=== PATIENT | male | born 1965 | race Caucasian/White ===

== ENCOUNTER 2024-03-29 07:59 | Day surgery (SDC) | payer OTHER ==
[2024-03-23 09:55] VITALS: BP 109/75
--- NOTE | 2024-03-26 09:53 | NUR ---
PT CAME TO HOSPITAL LOBBY TODAY TO ASK ABOUT HIS EKG RESULTS. REPORTS HE RECIEVED AN EMAIL FROM HIS PATIENT PORTAL THAT REPORTED AN ABNORMAL EKG RESULT. CALLED AND SPOKE WITH SHILO FROM ANESTHESIA. SHE STATES THAT PT WOULD HAVE GOTTEN A PHONE CALL CANCELING THE CASE IF ANESTHESIA WAS CONCERNED ABOUT THE FINDINGS. LET PT KNOW THIS AND HE STATES HE WILL COME FOR HIS CASE. ALSO OFFERED FOR HIM TO BE SEEN IN THE ED IF HE IS HAVING ANY SORT OF SYMPTOMS AT THIS TIME. PT REPORTS HE IS NOT, AND WAS OKAY TO GO HOME.
[~2024-03-29] VITALS: Ht 188 cm; Wt 97.7 kg
[~2024-03-29 07:59] MED LIST: CEFAZOLIN SODIUM 2 GM/20 ML SYR IV SCH; HEParin SOD (PORCINE) 5,000 UNIT/0.5 ML SYR SUB-Q SCH; IBLOOD GLUCOSE TEST STRIP 1 EA TEST VI PRN; LACTATED RINGER'S 1,000 ML IV SCH; LIDOCAINE HCL 1% 5 ML SDV INJ ONE; PROTONIX20 MG PO; SODIUM CHLORIDE 0.9% 60 ML IV ONE; TALTZ AUTO80 MG/1 ML; iopamidoL 30 ML VIAL ONE
[2024-03-29 08:20] VITALS: BP 117/71
[2024-03-29] MEDS ORDERED: DEXAMETHASONE SOD PHOS 4 MG/ML VIAL ONE (08:41)
[2024-03-29] MEDS ORDERED: propofoL 200 MG/20 ML VIAL ONE (08:41)
[2024-03-29] MEDS ORDERED: LIDOCAINE HCL 2% 5 ML SDV ONE (08:41)
[2024-03-29] MEDS ORDERED: ondansetron HCL 4 MG/2 ML VIAL ONE (08:41)
[2024-03-29] MEDS ORDERED: ROCURONIUM BROMIDE 50 MG/5 ML SYR ONE ×2 (08:41→10:55)
[2024-03-29] MEDS ORDERED: fentaNYL citrate 250 MCG/5 ML VIAL ONE (08:42)
[2024-03-29] MEDS ORDERED: ACETAMINOPHEN 1,000 MG/100 ML VIAL ONE (09:57)
[2024-03-29] MEDS ORDERED: KETOROLAC TROMETHAMINE 30 MG/ML VIAL ONE (09:58)
[2024-03-29] MEDS ORDERED: ePHEDrine sulfate 50 MG/ML AMP ONE (10:44)
[2024-03-29] MEDS ORDERED: SUGAMMADEX SODIUM 200 MG/2 ML ML ONE (11:13)
[2024-03-29] MEDS ORDERED: NALOXONE HCL 0.4 MG SYR IV PRN ×2 (11:15→12:00)
[2024-03-29] MEDS ORDERED: IBLOOD GLUCOSE TEST STRIP 1 EA TEST VI PRN (11:15)
[2024-03-29] MEDS ORDERED: droPERidol 5 MG/2 ML VIAL IV PRN (11:15)
[2024-03-29] MEDS ORDERED: ondansetron HCL 4 MG/2 ML VIAL IV PRN (11:15)
[2024-03-29] MEDS ORDERED: HYDROmorphone HCL 1 MG/ML SYR IV PRN (11:15)
[2024-03-29] MEDS ORDERED: fentaNYL citrate 50 MCG/ML SDV IV PRN (11:15)
[2024-03-29] MEDS ORDERED: FLUCONAZOLE200 MG PO (11:58)
[2024-03-29] MEDS ORDERED: OXYCODON-ACETA1 EAC2 PO (11:59)
[2024-03-29] MEDS ORDERED: IBUPROFEN600 MG PO (11:59)
[2024-03-29] MEDS ORDERED: ACETAMINOPHEN500 MG PO (11:59)
[2024-03-29] MEDS ORDERED: FLUCONAZOLE 200 MG TAB PO ONE (12:00)
[2024-03-29] MEDS ORDERED: IBUPROFEN 600 MG TAB PO PRN (12:00)
[2024-03-29] MEDS ORDERED: OXYCODONE/APAP 7.5/325 TAB PO PRN (12:00)
[2024-03-29] MEDS ORDERED: BACITRACIN3.5 GM OD (12:00)
[2024-03-29] MEDS ORDERED: LACTATED RINGER'S 1,000 ML IV SCH (12:00)
[2024-03-29] MEDS ORDERED: ACETAMINOPHEN 500 MG TAB PO PRN (12:00)
--- NOTE | 2024-03-29 12:10 | NUR ---
03/29/24 1210 Wen Puente 1142 PT ARRIVES TO THE PACU WITH A MASK AT 8L. RESP EVEN AND UNLABORED. PT RESTING WITH EYES CLOSED. PT AROUSABLE WITH TACTILE STIMULI. PT EASILY FALLS BACK TO SLEEP. 1147 O2 REMOVED. SATS IN THE HIGH 90S. 1152 PT WAKES MORE EASILY AND STATES THERE IS NO PAIN OR NAUSEA. PT EDUCATED ABOUT BRACING ABDOMEN WHEN COUGHING. PT ALSO CLEARING HIS THROAT, AND EDUCATION GIVEN ON INTUBATION DURING THE PROCEDURE. PT RESTING WITH EYES CLOSED AND NO APPARENT DISTRESS. 1200 PT REPORTS 2-3/10 PAIN AND THAT IT IS TOLERABLE AT THIS TIME. PT EYES OPEN AND LOOKING AROUND THE ROOM. PT REORIENTED TO PACU. 1204 MD AT BEDSIDE TO DISCUSS PLAN OF CARE.
--- NOTE | 2024-03-29 12:36 | NUR ---
1225: PATIENT BACK IN DAY SURGERY ROOM FROM PACU. RATES PAIN 4/10 IN ABDOMEN. ABDOMEN WITH 4 SITES. STERISTRIPS TO RUQ ABDOMEN SITES. STERISTRIPS, GUAZE, AND OP SITE TO UMBILICAL SITE. ALL SITES WITH SMALL AMOUNT OF RED DRAINAGE. IV SITE WNL. SCDs ON. VS CHECKED. CALL LIGHT WITHIN REACH. PATIENT GIVEN APPLESAUCE TO EAT BEFORE TAKING PAIN PILL.
--- NOTE | 2024-03-29 12:48 | NUR ---
1240: PATIENT TOLERATED APPLE SAUCE. MEDICATED FOR 5/10 PAIN WITH 1 TAB OF PERCOCET.
[2024-03-29 13:22] VITALS: BP 113/64
--- NOTE | 2024-03-29 13:24 | NUR ---
SOUP ORDERED FOR PATIENT. VS CHECKED. PATIENT STATES PAIN DOWN TO 2/10. NO NEEDS AT THIS TIME. CALL LIGHT WITHIN REACH.
[2024-03-29 14:20] VITALS: BP 119/52
--- NOTE | 2024-03-29 14:56 | NUR ---
1350: CHECKED PATIENT. PATIENT SLEEPING. DID NOT DISTURB. 1410: PATIENT GIVEN DISCHARGE INSTRUCTIONS. STAND BY TANG WHILE PATIENT MOVE TO SIDE OF BED. PATIENT DRESSED WITH ASSISTANCE FROM . 1425: STAND BY ASSIST WHILE PATIENT WALKED TO BATHROOM. GAIT STEADY. VOID PER URINAL. GAIT STEADY BACK TO ROOM. 1435: IV DC'D WNL. TIP INTACT. DRESSING APPLIED. PATIENT DISCHARGED TO HOME WITH FAMILY VIA WHEELCHAIR.
--- NOTE | 2024-03-30 12:22 | OR ---
[facility] [address] [place], [place] [address] Signed DATE OF OPERATION: 03/29/2024 SURGEON: Mamadou Aldrich MD PREOPERATIVE DIAGNOSIS: Chronic calculous cholecystitis. POSTOPERATIVE DIAGNOSIS: Chronic calculous cholecystitis. PROCEDURE: 1. Laparoscopic cholecystectomy with intraoperative cholangiogram. 2. Surgeon-directed fluoroscopy. ANESTHESIA: General endotracheal, Berto Syed, TILT WALL SUPERVISOR and local 10 mL of 0.25% Marcaine with epinephrine. INDICATION: This 58-year-old white man has had episodes of rather severe epigastric pain from time to time. He was evaluated by his primary physician, Dr. Reed in [place], [place]. He was empirically treated with PPI medication, which appeared to be beneficial. Going off the medication did result in some recurrence of symptoms. He was referred for consideration of upper endoscopy and colonoscopy by family member. Upon close questioning, it appears that many of his symptoms were suggestive of biliary colic including distant episode of severe epigastric and right subcostal pain with radiation into the back. On that basis, a gallbladder ultrasound was ordered, which did show two gallstones. 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 For now, although considering his symptoms of biliary disease including epigastric right subcostal and posterior subscapular pain, consideration will be made for cholecystectomy at this time. The risk of bleeding, infection, bile duct injury, need for open procedure and other unforeseen complications was reviewed with him and his . They understand and wished to proceed. FINDINGS: Indeed the gallbladder was chronically inflamed. It was elongated. The liver itself was normal. Cholangiogram was normal. The gallbladder once excised showed two 1 cm Electronically Signed By: MAMADOU ALDRICH MD 03/30/24 1222 PATIENT NAME: ORA MCNAIR OPERATIVE REPORT DATE OF : 63 REPORT #: [id number] PHYSICIAN: MAMADOU ALDRICH MD PCP: HARPER AMBROCIO DC REPORT IS CONFIDENTIAL AND NOT TO BE RELEASED WITHOUT AUTHORIZATION [facility] [address] [place], [place] [address] Signed oblong dark stones. There was no evidence of malignancy, but the mucosa had chronic inflammatory change. Additionally noted was a somewhat challenging airway, intubation was accomplished safely and without good hazard, but future reference is made for possible challenging airway to some degree. DESCRIPTION OF PROCEDURE: The patient was brought to the operating room, given a general endotracheal anesthetic. Various maneuvers were required to safely intubate though it was accomplished without problem in due course. Preoperative antibiotic Ancef was given. Sequential compression device stockings used and heparin subcutaneously administered. The abdomen was clipped and prepared with a chlorhexidine solution. Note was made of some umbilical inflammatory change, which appeared to be non-purulent and likely represents a low-grade yeast infection. On the basis of those findings, a supraumbilical incision was made in the abdomen and entered after a Tonya cannula technique allowing for pneumoperitoneum with a York balloon catheter to a level of 14 mmHg of carbon dioxide gas. Intra-abdominal inspection showed no sign of ascites or carcinomatosis. Previous right lower quadrant incision from appendectomy many years ago was well healed. The gallbladder itself was chronically inflamed. Photographs were taken. The liver was normal. Three additional trocars were placed in usual configuration in the subxiphoid, right midclavicular, and right anterior axillary line. Gallbladder was elevated cephalad and retracted and retracted laterally. It was elongated. The infundibulum was identified in the depths of the of Morison's pouch. The infundibulum was grasped and using blunt electrocautery dissection, the triangle of Calot was dissected free ultimately identifying well cystic duct. Some oozing of the anterior medial wall of the gallbladder was secured with some clips, but was not ultimately controlled to the main cystic artery with secured. Once the cystic duct was well defined, a clip was applied across gallbladder cystic duct junction and a transverse choledochotomy made the cystic duct. Retrograde milking of the cystic duct did deliver two small bits of dark stone material. Using the Salter type cholangiocatheter, intraoperative cholangiography was undertaken showing free flow of contrast in biliary tree with profound antegrade emptying into the duodenum. With additional time and installation of contrast, the dominant common hepatic duct and some biliary radicles were identified and found to be normal. The catheter was removed. The cystic duct was triply clipped and divided. The gallbladder was then dissected free in a retrograde fashion. The dominant cystic artery to the gallbladder was easily clipped and any oozing of the surface of the gallbladder immediately ceased. The gallbladder Electronically Signed By: MAMADOU ALDRICH MD 03/30/24 1222 PATIENT NAME: ORA MCNAIR OPERATIVE REPORT DATE OF : 63 REPORT #: [id number] PHYSICIAN: MAMADOU ALDRICH MD PCP: HARPER AMBROCIO DC REPORT IS CONFIDENTIAL AND NOT TO BE RELEASED WITHOUT AUTHORIZATION [address] [address] Signed was dissected free from the liver bed, ultimately placed in an endobag and extracted through the infraumbilical port site and opened on the back table showing chronic inflammatory change of the mucosa and two gallstones about a cm in length, oblong in shape and dark in color. Irrigation was undertaken with subhepatic space. There was no bleeding or other problem. Given the vascularity and some oozing before, Loren hemostatic agent was applied to the subhepatic space area. Excess irrigation was suctioned free. The trocars removed under direct visualization showing no sign of bleeding. The infraumbilical fascial incision reapproximated with interrupted 0 Vicryl suture. 10 mL of 0.25% Marcaine with epinephrine injected locally in the trocar sites and skin closed with interrupted 3-0 Vicryl. Steri-Strips were applied. An op-site was applied at the umbilical site in deference to the umbilical inflammatory change. Bacitracin was applied to that site. The patient was ultimately extubated and certainly without any problem in doing so, and taken to the recovery room in good condition. MD DANA Newton/CYRUS /[id number] cc: DO Bobby Vang Oregan Copies: ~ Electronically Signed By: MAMADOU ALDRICH MD 03/30/24 1222 PATIENT NAME: ORA MCNAIR OPERATIVE REPORT DATE OF : 63 REPORT #: [id number] PHYSICIAN: MAMADOU ALDRICH MD PCP: HARPER AMBROCIO DC REPORT IS CONFIDENTIAL AND NOT TO BE RELEASED WITHOUT AUTHORIZATION
--- NOTE | 2024-03-31 11:16 | PATH ---
[facility] [address] [place], [place] [address] Signed SPECIMEN(S): A GALLBLADDER AND STONES SPECIMEN SOURCE: A. GALLBLADDER AND STONES CLINICAL HISTORY: Symptomatic gallstones FINAL PATHOLOGIC DIAGNOSIS: Gallbladder, cholecystectomy: - Chronic calculous cholecystitis with intestinal metaplasia; negative for dysplasia - One reactive lymph node BRP MICROSCOPIC EXAMINATION: Histologic sections of all submitted blocks are examined by light microscopy. These findings, together with the gross examination, support the pathologic diagnosis. GROSS DESCRIPTION: The specimen, labeled and designated "teresa Hassan," is received in formalin and consists of Specimen: Previously opened gallbladder. Dimensions: 9.5 x 2.0 cm. Serosa: Violaceous, smooth. Cystic Duct: Inked, unobstructed. Calculi: Two yellow-green gallstones within the container that measure 1.2 cm in diameter each. Mucosa: [place]-romero and velvety. Wall thickness: 0.3 cm. Lymph node: One possible pericystic lymph node that measures 0.7 cm in greatest dimension is identified. Possible lymph node is bisected and entirely submitted. Additional: None. Tom[employer] Weapon System Operator sections are submitted in (A1). JS (under the direct supervision of a pathologist) The Gross Description was prepared using a voice recognition system. The report was reviewed for accuracy; however, sound-alike word errors, addition and/or deletions may occur. If there is any question about this report, please contact Client Services. PATIENT NAME: XUORA Magdiel PATHOLOGY DATE OF : 63 REPORT #: [id number] PHYSICIAN: LOYD COLMENARES PCP: HARPER AMBROCIO DC REPORT IS CONFIDENTIAL AND NOT TO BE RELEASED WITHOUT AUTHORIZATION [address] [place] [address] Signed ADDITIONAL NOTES: Immunohistochemical and/or in situ hybridization studies if performed in this case included appropriate positive controls that reacted as expected. This test was developed and its performance characteristics determined by [facility]. It has not been cleared or approved by the U.S. Food and Drug Administration. The FDA has determined that such clearance or approval is not necessary. This test is used for clinical purposes. It should not be regarded as investigational or for research. [facility] is certified under the Clinical Laboratory Improvement Amendments of 1988 (CLIA) as qualified to perform high complexity clinical laboratory testing. PERFORMING LABORATORY: Technical component was performed by [facility], [address] [place] [address] (CLIA# [id number]). Professional interpretation was performed by [facility], [address] [place] [address] (CLIA#: [id number]). Diagnostician: Kevin Ambrocio MD Pathologist Electronically Signed 03/31/2024 Copies: ~ PATIENT NAME: XUORA Veloz PATHOLOGY DATE OF : 63 REPORT #: [id number] PHYSICIAN: LOYD PATHOLOGY PCP: HARPER AMBROCIO DC REPORT IS CONFIDENTIAL AND NOT TO BE RELEASED WITHOUT AUTHORIZATION
== END 2024-03-29 14:35 | disposition home or self-care (01) ==
LOC: DS 07:59
PROVIDERS: ATTEND Surgery
PROC: BF13YZZ Fluoroscopy of Gallbladder and Bile Ducts using Other Contrast (ICD-10-PCS; 2024-03-29)
PROC: 0FT44ZZ Resection of Gallbladder, Percutaneous Endoscopic Approach (ICD-10-PCS; principal; 2024-03-29 10:00)
DX: K80.10 Calculus of gallbladder with chronic cholecystitis without obstruction (principal); L40.9 Psoriasis, unspecified; Z90.49 Acquired absence of other specified parts of digestive tract; Z79.899 Other long term (current) drug therapy
CPT/HCPCS: 00790; 74300; J0131; J0690; J1100; J1644; J1885; J2001; J2405; J2704; J3010; J3490; J7121; Q9967

== ENCOUNTER 2024-05-23 13:13 | Day surgery (SDC) | payer OTHER ==
[~2024-05-23] VITALS: Ht 188 cm; Wt 97.7 kg
[~2024-05-23 13:13] MED LIST changes: +ACETAMINOPHEN500 MG PO; +BACITRACIN3.5 GM OD; -CEFAZOLIN SODIUM 2 GM/20 ML SYR IV SCH; +FLUCONAZOLE200 MG PO; -HEParin SOD (PORCINE) 5,000 UNIT/0.5 ML SYR SUB-Q SCH; +IBUPROFEN600 MG PO; +LIDOCAINE HCL 4% 50 ML BTL TOP SCH; +MIDAZOLAM HCL 5 MG/5 ML VIAL IV PRN; +OXYCODON-ACETA1 EAC2 PO; -SODIUM CHLORIDE 0.9% 60 ML IV ONE; +fentaNYL citrate 100 MCG/2 ML VIAL IV PRN; -iopamidoL 30 ML VIAL ONE
[2024-05-23 13:30] VITALS: BP 111/61
[2024-05-23] MEDS ORDERED: MIDAZOLAM HCL 5 MG/5 ML VIAL ONE (13:56)
[2024-05-23] MEDS ORDERED: fentaNYL citrate 100 MCG/2 ML VIAL ONE (13:57)
--- NOTE | 2024-05-23 15:16 | NUR ---
05/23/24 Quang6 Janae Larios 1506- PT PRESENTS TO PACU, LEFT LATERAL POSITION, PT ARRIVES WITH EYES OPEN BUT VERY DROWSY, FALLS TO SLEEP EASILY. PT DOES DENY PAIN AND NAUSEA. ABD SOFT, NON DISTENDED. ENCOURAGED TO PASS GAS. LR INFUSING TO RW IV. O2 AT 3L PER NC. NO SIGNS OF DISTRESS. 1513- PT RESTING COMFORTABLY, WAKES EASILY TO VERBAL STIMULI. BREATHING EVEN AND NON LABORED. MOVED PT TO ROOM AT THIS TIME. 1515- 1ST LITER LR COMPLETED AT THIS TIME.
[2024-05-23 16:11] VITALS: BP 100/64
--- NOTE | 2024-05-26 09:47 | OR ---
[facility] [address] [place], [place] [address] Signed DATE OF OPERATION: 05/23/2024 SURGEON: Mamadou Aldrich MD PREOPERATIVE DIAGNOSES: 1. Dyspeptic symptoms (improved following cholecystectomy). 2. Colon screening. POSTOPERATIVE DIAGNOSES: 1. Mild antral gastritis and duodenitis. 2. Small polyp of rectosigmoid (likely hyperplastic). PROCEDURES: 1. Esophagogastroduodenoscopy with biopsy. 2. Total colonoscopy to cecum with cold morcellation polypectomy x1. ANESTHESIA: Intravenous sedation; fentanyl 150 mcg and Versed 7 mg (total). INDICATION: This 58-year-old white man is a patient of Dr. Jon Reed in [place] and additionally Dr. Harper Ambrocio [place] of [place]. He was having abdominal pain and was considered possibly to have malignant disease and I evaluated him and he appeared more likely to have biliary colic. He underwent evaluation confirming probable acalculous cholecystitis and ultimately laparoscopic cholecystectomy with intraoperative cholangiogram. His preoperative upper abdominal symptoms have resolved entirely. He had been recommended for upper endoscopy to better evaluate these symptoms as well as colonoscopy for screening. He is admitted to undergo upper endoscopy and colonoscopy. He understands the risk of bleeding, infection, and perforation. FINDINGS: Upper endoscopy showed a good flap valve. No sign of esophagitis or Cheng's epithelium. He had mild antral gastritis and bulbar duodenitis. CLOtest was negative. On colonoscopy, the prep was quite good. Complete colonoscopy was undertaken of the cecum with full intubation of the cecum. There was a small polyp probably hyperplastic at the rectosigmoid, which was excised with cold morcellation technique as well as internal hemorrhoidal changes. PROCEDURE IN DETAIL: Electronically Signed By: MAMADOU ALDRICH MD 05/26/24 0947 PATIENT NAME: ORA MCNAIR OPERATIVE REPORT DATE OF : 63 REPORT #: [id number] PHYSICIAN: MAMADOU ALDRICH MD PCP: HARPER AMBROCIO DC REPORT IS CONFIDENTIAL AND NOT TO BE RELEASED WITHOUT AUTHORIZATION [facility] [address] [place], [place] [address] Signed The patient was brought to the endoscopy suite and given topical lidocaine hypopharyngeal anesthesia and placed in the lateral decubitus position. He was given intravenous sedation to the point of slurred speech and nystagmus with full cardiopulmonary monitoring. A bite block was placed and an Olympus video upper endoscope was passed in the hypopharynx. The vocal cords were normal. Scope was advanced to the esophagus without too much issue. Ultimately, I fully examined the esophagus which essentially was normal. The scope was passed to the stomach which was insufflated with air with a small amount of bilious fluid, but not much. Mucosal folds were normal. Antral motility was normal. The duodenum was evaluated after passage to the pylorus and the duodenal bulb was somewhat inflamed. Second and third portions were normal. Biopsies were taken of the third portion of the duodenum to assess for celiac disease and the scope was then withdrawn to the bulbar duodenum allowing for biopsies. Scope was withdrawn and biopsy was then taken of the antrum for both SUPRIYA and pathologic testing. Retroflexed view was undertaken showing a good flap valve. The scope was straightened, withdrawn and biopsies taken of the distal esophagus which looked essentially normal. Midesophageal biopsies were obtained also. Further withdrawal showed no other abnormality. Plans were then made for colonoscopy. Additional sedation was given. Digital rectal examination performed which was normal. The Olympus video colonoscope was passed in the rectum and manipulated throughout the colon ultimately intubating the cecum. Full intubation was accomplished. The scope was then withdrawn carefully and examination throughout showed no sign of abnormality into the rectosigmoid, where small polyp was noted. Most likely, this was hyperplastic. It was excised with cold morcellation technique without problem. The scope was then withdrawn more fully and retroflexed view undertaken showing no sign of abnormality other than internal hemorrhoids. The scope was straightened, withdrawn and removed. The patient was taken to the recovery room in good condition. CONCLUDING DIAGNOSES: 1. Antral gastritis and mild bulbar duodenitis, otherwise normal. CLOtest negative. 2. Small polyp of rectosigmoid consistent with hyperplastic polyp. PLAN: Recommend repeat colonoscopy in 5 years, sooner if clinically indicated. No need for repeat upper endoscopy unless symptomatic. It is probable that the cholecystectomy for chronic cholecystitis was accounting for his symptoms previously. Electronically Signed By: MAMADOU ALDRICH MD 05/26/24 0947 PATIENT NAME: ORA MCNAIR OPERATIVE REPORT DATE OF : 63 REPORT #: [id number] PHYSICIAN: MAMADOU ALDRICH MD PCP: HARPER AMBROCIO DC REPORT IS CONFIDENTIAL AND NOT TO BE RELEASED WITHOUT AUTHORIZATION [address] [address] Signed MD DANA Newton/MODL /[id number] cc: CONCEPCIÓN [facility] Copies: HARPER AMBROCIO DC ~ Electronically Signed By: MAMADOU ALDRICH MD 05/26/24 0947 PATIENT NAME: ORA MCNAIR Magdiel OPERATIVE REPORT DATE OF : 63 REPORT #: [id number] PHYSICIAN: MAAMDOU ALDRICH MD PCP: HARPER AMBROCIO DC REPORT IS CONFIDENTIAL AND NOT TO BE RELEASED WITHOUT AUTHORIZATION
--- NOTE | 2024-05-30 18:02 | PATH ---
[facility] [address] [place], [place] [address] Signed SPECIMEN(S): A DUODENUM BIOPSY SPECIMEN(S): B DUODENUM BULB BIOPSY SPECIMEN(S): C ANTRUM BIOPSY SPECIMEN(S): D ESOPHAGUS BIOPSY SPECIMEN(S): E ESOPHAGUS BIOPSY SPECIMEN(S): F RECTO-SIGMOID POLYP SPECIMEN SOURCE: A. DUODENUM BIOPSY B. DUODENUM BULB BIOPSY C. ANTRUM BIOPSY D. ESOPHAGUS BIOPSY E. ESOPHAGUS BIOPSY F. RECTO-SIGMOID POLYP CLINICAL HISTORY: Epigastric and abdominal pain, mild duodenitis, mild antral gastritis FINAL PATHOLOGIC DIAGNOSIS: A. Duodenum, biopsy: - Benign duodenal mucosa with no significant pathologic abnormality. - No celiac sprue identified by HE stain. - No ulcer or dysplasia identified. B. Duodenal bulb, biopsy: - Benign duodenal mucosa with no significant pathologic abnormality. - No celiac sprue identified by HE stain. - No ulcer or dysplasia identified. C. Antrum stomach, biopsy: - Mild chronic gastritis. - Negative for Helicobacter organisms by immunohistochemistry stain. - No ulcer, dysplasia, or intestinal metaplasia identified. D. Distal esophagus, biopsy: - Benign esophageal squamous mucosa with increased intramucosal eosinophils. - Focally, eosinophils are 20 per high-power field with an overall average of 5 per high-power field. - No ulcer, dysplasia, or intestinal metaplasia identified. - See comment. E. Mid esophagus, biopsy: - Benign esophageal squamous mucosa with increased intramucosal eosinophils. - Focally, eosinophils are 20 per high-power field with an overall average of PATIENT NAME: ORA MCNAIR PATHOLOGY DATE OF : 63 REPORT #: [id number] PHYSICIAN: LOYD COLMENARES PCP: HARPER AMBROCIO DC REPORT IS CONFIDENTIAL AND NOT TO BE RELEASED WITHOUT AUTHORIZATION [facility] [address] [place], [place] [address] Signed 7 per high-power field. - No ulcer, dysplasia, or intestinal metaplasia identified. - See comment. F. Rectosigmoid polyp: - Sessile serrated adenoma. - No colitis or neoplasm identified. COMMENT: Specimen DE: The findings are supportive of eosinophilic esophagitis in the correct clinical-endoscopic setting JLP MICROSCOPIC EXAMINATION: Histologic sections of all submitted blocks are examined by light microscopy. These findings, together with the gross examination, support the pathologic diagnosis. GROSS DESCRIPTION: A. The specimen, labeled and designated "Mo, duodenal biopsy," is received in formalin and consists of two romero soft tissue fragments, ranging from 0.3-0.5 cm. Entirely submitted in (A1). B. The specimen, labeled and designated "Mo, duodenum bulb biopsy," is received in formalin and consists of one romero soft tissue fragment, 0.5 cm. Entirely submitted in (B1). C. The specimen, labeled and designated "Mo, antrum biopsy," is received in formalin and consists of one romero soft tissue fragment, 0.4 cm. Entirely submitted in (C1). D. The specimen, labeled and designated "Mo, distal esophagus biopsy," is received in formalin and consists of two romero soft tissue fragments, ranging from 0.2-0.6 cm. Entirely submitted in (D1). E. The specimen, labeled and designated "Mo, mid esophagus biopsy," is received in formalin and consists of three romero soft tissue fragments, ranging from 0.4-0.5 cm. Entirely submitted in (E1). F. The specimen, labeled and designated "Mo, rectosigmoid polyp," is received in formalin and consists of one romero soft tissue fragment, 0.3 cm. Entirely submitted in (F1). VB (under the direct supervision of a pathologist) The Gross Description was prepared using a voice recognition system. The report was reviewed for accuracy; however, sound-alike word errors, addition and/or deletions may occur. If there is any question about this report, please contact Client Services. PATIENT NAME: ORA MCNAIR PATHOLOGY DATE OF : 63 REPORT #: [id number] PHYSICIAN: LOYD COLMENARES PCP: HARPER AMBROCIO DC REPORT IS CONFIDENTIAL AND NOT TO BE RELEASED WITHOUT AUTHORIZATION [address] [address] Signed ADDITIONAL NOTES: Immunohistochemical and/or in situ hybridization studies if performed in this case included appropriate positive controls that reacted as expected. This test was developed and its performance characteristics determined by [facility]. It has not been cleared or approved by the U.S. Food and Drug Administration. The FDA has determined that such clearance or approval is not necessary. This test is used for clinical purposes. It should not be regarded as investigational or for research. [facility] is certified under the Clinical Laboratory Improvement Amendments of 1988 (CLIA) as qualified to perform high complexity clinical laboratory testing. PERFORMING LABORATORY: Technical component was performed by [facility], [address] [place] [id number] (CLIA# [id number]). Professional interpretation was performed by [facility], [address] [place] [id number] (CLIA#: [id number]). Diagnostician: Boyd Mancia MD Pathologist Electronically Signed 05/30/2024 Copies: ~ PATIENT NAME: ORA MCNAIR Magdiel PATHOLOGY DATE OF : 63 REPORT #: [id number] PHYSICIAN: LOYD PATHOLOGY PCP: HARPER AMBROCIO DC REPORT IS CONFIDENTIAL AND NOT TO BE RELEASED WITHOUT AUTHORIZATION
== END 2024-05-23 16:15 | disposition home or self-care (01) ==
LOC: DS 13:13 → OPS 13:13 → DS 14:00 → OPS 14:00
PROVIDERS: ATTEND Surgery
PROC: 0DB28ZX Excision of Middle Esophagus, Via Natural or Artificial Opening Endoscopic, Diagnostic (ICD-10-PCS; 2024-05-23)
PROC: 0DBN8ZX Excision of Sigmoid Colon, Via Natural or Artificial Opening Endoscopic, Diagnostic (ICD-10-PCS; 2024-05-23)
PROC: 0DB98ZX Excision of Duodenum, Via Natural or Artificial Opening Endoscopic, Diagnostic (ICD-10-PCS; principal; 2024-05-23 14:00)
PROC: 0DB68ZX Excision of Stomach, Via Natural or Artificial Opening Endoscopic, Diagnostic (ICD-10-PCS; 2024-05-23 14:00)
DX: Z12.11 Encounter for screening for malignant neoplasm of colon (principal); K29.50 Unspecified chronic gastritis without bleeding; D12.7 Benign neoplasm of rectosigmoid junction; K29.80 Duodenitis without bleeding; L40.9 Psoriasis, unspecified
CPT/HCPCS: 99153; G0500; J2250; J3010; J7121